=== PATIENT | male | born 1995 | race Caucasian/White ===

== ENCOUNTER → 2023-06-24 | Outpatient (REF) | payer OTHER ==
[2023-06-24 13:37] LABS: SEMEN APPEARANCE OPAQUE (OPAQUE)
[2023-06-24 13:41] LABS: SEMEN VISCOSITY LIQUID (LIQUID); SEMEN VOLUME 3.8 ml (2.0-5.0); SEMEN pH 8.5 (7.0-8.0)
[2023-06-24 13:42] LABS: SPERM CONCENTRATION 13.5 M/ml (>=15.0); WBC CONCENTRATION <=1 M/ml (<=1 M/ml)
== END ==
LOC: M SMT 11:13
PROVIDERS: ATTEND Nurse Practitioner Family
DX: N50.89 Other specified disorders of the male genital organs (principal)

== ENCOUNTER → 2023-06-24 | Outpatient (CLI) | payer OTHER | LOC: M LAB 11:20 | PROVIDERS: ATTEND Nurse Practitioner Family | DX: N50.89 Other specified disorders of the male genital organs (principal) ==

== ENCOUNTER → 2023-07-14 | Outpatient (CLI) | payer OTHER ==
[2023-07-14 12:16] LABS: HEMATOCRIT 43.8 % (42.0-52.0); HEMOGLOBIN 15.1 g/dl (13.5-17.5); MEAN CORPUSCULAR HEMOGLOBIN 28.9 pg (27.0-33.0); MEAN CORPUSCULAR HGB CONC 34.5 g/dl (32.0-36.5); MEAN CORPUSCULAR VOLUME 83.7 fl (80.0-96.0); PLATELET COUNT, AUTOMATED 188 10^3/uL (150-450); RED BLOOD COUNT 5.23 10^6/uL (4.30-6.10); WHITE BLOOD COUNT 6.8 10^3/uL (4.0-10.0)
[2023-07-14 12:54] LABS: BLOOD UREA NITROGEN 17 MG/DL (9-23); CALCIUM LEVEL 8.7 MG/DL (8.5-10.1); CARBON DIOXIDE LEVEL 30 MMOL/L (20-31); CHLORIDE LEVEL 105 MMOL/L (98-107); CREATININE FOR GFR 0.94 MG/DL (0.70-1.30); GLOMERULAR FILTRATION RATE > 60.0 (>60); GLUCOSE, FASTING 78 MG/DL (60-100); POTASSIUM SERUM 4.1 MMOL/L (3.5-5.1); SODIUM LEVEL 140 MMOL/L (136-145)
== END ==
LOC: M RAD 11:11
PROVIDERS: ATTEND Nurse Practitioner Family
DX: Z01.818 Encounter for other preprocedural examination (principal)

== ENCOUNTER → 2023-07-22 | Outpatient (CLI) | payer OTHER | LOC: M SOG 10:29 | PROVIDERS: ATTEND Physician Assistant | DX: M79.645 Pain in left finger(s) (principal) ==

== ENCOUNTER 2023-07-24 13:28 | Day surgery (SDC) | payer OTHER ==
[~2023-07-24] VITALS: Ht 175.3 cm; Wt 80.1 kg
[2023-07-24] MEDS ORDERED: LR 1,000 ML IV SCH (13:50)
[2023-07-24] MEDS ORDERED: MIDAZOLAM INJ 2MG/2ML VIAL As Ordered ONE (19:09)
[2023-07-24] MEDS ORDERED: LIDOCAINE 2% 100MG/5ML SDV (FOR ANES.) As Ordered ONE (19:10)
[2023-07-24] MEDS ORDERED: fentaNYL 100 MCG/2 ML INJECTION As Ordered ONE (19:10)
[2023-07-24] MEDS ORDERED: propofoL 200 MG/20 ML VIAL As Ordered ONE (19:10)
[2023-07-24] MEDS ORDERED: KETOROLAC 60MG 2ML VIAL As Ordered ONE (19:11)
[2023-07-24] MEDS ORDERED: ONDANSETRON 4MG 2ML VIAL As Ordered ONE (19:11)
[2023-07-24] MEDS ORDERED: OXYC1TAB23 PO (19:14)
[2023-07-24] MEDS ORDERED: HYDROmorphone HCL 2MG/ML 1ML VIAL As Ordered ONE (19:15)
[2023-07-24] MEDS ORDERED: ACETAMINOPHEN 1000MG 100ML IV BAG As Ordered ONE (19:35)
[2023-07-24] MEDS: ceFAZolin SOD 2 GM in IV 1 EA IV ONE (19:35)
[2023-07-24] MEDS: LIDOCAINE 1% SDV 30ML VIAL As Ordered ONE (20:30)
[2023-07-24] MEDS ORDERED: fentaNYL 100 MCG/2 ML INJECTION IV PRN (20:35)
[2023-07-24] MEDS: MORPHINE 2 MG/ML 1ML VIAL IV PRN (21:06)
[2023-07-24] MEDS: oxyCODONE 5MG TAB PO PRN (21:06)
[2023-07-24] MEDS: ONDANSETRON 4MG 2ML VIAL IV PRN (21:06)
[2023-07-24 21:40] VITALS: BP 140/85; TEMP 98.4; O2SAT 99
== END 2023-07-24 22:03 | disposition home or self-care (01) ==
LOC: M SDC 13:28
PROVIDERS: ATTEND Urology
DX: C62.12 Malignant neoplasm of descended left testis (principal); J45.909 Unspecified asthma, uncomplicated; R06.83 Snoring; Z87.891 Personal history of nicotine dependence
CPT/HCPCS: 54530; 88309; J0131; J0665; J0690; J1100; J1170; J1885; J2250; J2405; J3010

== ENCOUNTER → 2023-08-27 | Outpatient (CLI) | payer OTHER ==
[~2023-08-27] MED LIST: ISOVUE-370 76% 100ML VIAL As Ordered ONE; OXYC1TAB23 PO
== END ==
LOC: M RAD 08:52
PROVIDERS: ATTEND Urology
DX: C62.12 Malignant neoplasm of descended left testis (principal)
CPT/HCPCS: 74177; 82105; 83615; 84702; Q9967

== ENCOUNTER → 2023-11-05 | Outpatient (REF) | payer OTHER ==
[~2023-11-05] MED LIST changes: -ISOVUE-370 76% 100ML VIAL As Ordered ONE
[2023-11-05 10:30] LABS: SEMEN APPEARANCE OPAQUE (OPAQUE); SEMEN VISCOSITY LIQUID (LIQUID); SEMEN pH 8.5 (7.0-8.0)
[2023-11-05 10:31] LABS: SPERM CONCENTRATION 63.9 M/ml (>=15.0); WBC CONCENTRATION <=1 M/ml (<=1 M/ml)
== END ==
LOC: M SMT 10:15
PROVIDERS: ATTEND Urology
DX: R86.8 Other abnormal findings in specimens from male genital organs (principal)

== ENCOUNTER → 2023-11-05 | Outpatient (CLI) | payer OTHER | LOC: M LAB 10:18 | PROVIDERS: ATTEND Urology | DX: E29.1 Testicular hypofunction (principal); R86.8 Other abnormal findings in specimens from male genital organs ==

== ENCOUNTER → 2023-12-30 | Outpatient (CLI) | payer OTHER ==
[~2023-12-30] MED LIST changes: +ISOVUE-370 76% 100ML VIAL As Ordered ONE
== END ==
LOC: M RAD 15:30
PROVIDERS: ATTEND Urology
DX: C62.12 Malignant neoplasm of descended left testis (principal)

== ENCOUNTER → 2024-04-05 | Outpatient (REF) | payer OTHER ==
[~2024-04-05] MED LIST changes: -ISOVUE-370 76% 100ML VIAL As Ordered ONE
[2024-04-05 15:20] LABS: APPEARANCE, URINE CLEAR (CLEAR); BACTERIA, URINE AUTO NEGATIVE (NEGATIVE); BILIRUBIN, URINE AUTO NEGATIVE (NEGATIVE); BLOOD, URINE BLOOD NEGATIVE (NEGATIVE); COLOR, URINE YELLOW (YELLOW); GLUCOSE, URINE (UA) AUTO NEGATIVE (NEGATIVE); KETONE, URINE AUTO NEGATIVE (NEGATIVE); LEUKOCYTE ESTERASE, URINE AUTO NEGATIVE (NEGATIVE); NITRITE, URINE AUTO NEGATIVE (NEGATIVE); PROTEIN, URINE AUTO NEGATIVE (NEGATIVE); RBC, URINE AUTO 0 /HPF (0-3); SQUAMOUS EPITHELIAL CELL UR AU 0 /HPF (0-6); UROBILINOGEN, URINE AUTO 0.2 mg/dL (0.0-2.0); WBC, URINE AUTO 1 /HPF (0-3)
== END ==
LOC: M SMT 14:36
PROVIDERS: ATTEND Urology
DX: N50.811 Right testicular pain (principal)

== ENCOUNTER → 2024-04-29 | Outpatient (CLI) | payer OTHER ==
[~2024-04-29] MED LIST changes: +ISOVUE-370 76% 100ML VIAL ONE
== END ==
LOC: M PLAIMG 08:54
PROVIDERS: ATTEND Urology
DX: C62.12 Malignant neoplasm of descended left testis (principal)

== ENCOUNTER → 2024-09-29 | Outpatient (CLI) | payer OTHER ==
[~2024-09-29] MED LIST changes: +ISOVUE-370 76% 100 ML VIAL As Ordered ONE; -ISOVUE-370 76% 100ML VIAL ONE
== END ==
LOC: M RAD 16:49
PROVIDERS: ATTEND Urology
DX: C62.12 Malignant neoplasm of descended left testis (principal)

== ENCOUNTER → 2025-01-28 | Outpatient (CLI) | payer OTHER ==
[~2025-01-28] MED LIST changes: -ISOVUE-370 76% 100 ML VIAL As Ordered ONE
== END ==
LOC: M LAB 09:24
PROVIDERS: ATTEND Urology
DX: C62.12 Malignant neoplasm of descended left testis (principal)